=== PATIENT | male | born 1990 | race Caucasian/White ===

== ENCOUNTER 2020-09-28 14:11 | Observation (INO) | payer BC, OTHER ==
[2020-09-28] MEDS ORDERED: Sodium Chloride 0.9% 10 ML Syringe FLUSH PRN (14:48)
[2020-09-28] MEDS ORDERED: Sodium Chloride 0.9% 2.5 ML Syringe FLUSH PRN (14:48)
[2020-09-28] MEDS ORDERED: Sodium Chloride 0.9% 1,000 ML IV ONE ×2 (14:49→16:56)
[2020-09-28] MEDS ORDERED: Ondansetron 4 MG/2 ML SDV IVPUSH ONE (14:49)
--- NOTE | 2020-09-28 15:40 | CT ---
Indication: Fell today Technique: Noncontrast head CT Comparison: No comparison Findings: Axial noncontrast images through the brain parenchyma demonstrates no acute intracranial hemorrhage or mass. No midline shift. No abnormal extra-axial air fluid collections are seen. Paranasal sinuses, mastoid air cells, skull and scalp appear unremarkable. Impression: 1. No acute intracranial hemorrhage or mass Please note that all CT scans at this facility use dose modulation, iterative reconstruction, and/or weight-based dosing when appropriate to reduce radiation dose to as low as reasonably achievable. Dictated by Jodi Ta MD @ 09/28/2020 3:39:[address] Jodi Ta @ Sep 28 2020 3:39PM
[2020-09-28 15:54] LABS: BLOOD UREA NITROGEN,BUN 13 mg/dL (7.0-18.0); CHLORIDE,CL 100 mmol/L (98-107); GLUCOSE RANDOM 129 mg/dL (74-106); POTASSIUM,K 3.8 mmol/L (3.5-5.1); SODIUM,NA 132 mmol/L (136-148)
--- NOTE | 2020-09-28 15:57 | PCM.EKG ---
#1 Interpretation EKG Date: 09/28/20 Time: 15:51 Rhythm: A-Fib Rate (Beats/Min): 135 ST-T: Normal
[2020-09-28] MEDS ORDERED: LORazepam 2 MG/ML SDV IVPUSH ONE (16:04)
[2020-09-28] MEDS ORDERED: chlordiazePOXIDE 25 MG Cap PO ONE (16:07)
[2020-09-28] MEDS ORDERED: MVI, Adult with Vitamin K 10 ML, Thiamine 100 MG, Folic Acid 1 MG in Sodium Chloride 0.... IV ONE ×4 (16:10)
--- NOTE | 2020-09-28 16:11 | EDM.PDOC ---
ED HPI GENERAL MEDICAL PROBLEM - General Chief Complaint: General Stated Complaint: SEIZURES SYSTOMS Time Seen by Provider: 09/28/20 14:22 Source of Information: Reports: Patient, Family History Limitations: Reports: No Limitations - History of Present Illness INITIAL COMMENTS - FREE TEXT/NARRATIVE: HISTORY AND PHYSICAL: History of present illness: The patient is a 29-year-old male who presents to the emergency room after possible syncopal episode. His reports at 1345 today he walked out of his office uncoordinated. She states that he was kind of "out of it" for about 45 minutes. The patient states that he drank 2 bottles of wine on Tuesday and then on Tuesday he drank 6 beers and some gin. He states on Tuesday he ate a hamburger and some fries no other food consumption. He states that he is dizzy whether he is standing or lying down. He denies vomiting but is nauseated. He feels that he does not normally drink like this and that he just drank too much and is dehydrated. His reports that when she went into his office she noted some blood on the floor and blood coming from his mouth. The patient's also has complaints of lower back pain that started approximately 1 week ago. He states that he does a lot of bending and lifting for work. The patient's heart rate in the emergency department is 150 his blood pressure is 92/70. Orthostatics done at the bedside supine heart rate 150 blood pressure 124/62 standing heart rate 180 blood pressure 138/87. The patient is anxious and reports this is due to anxiety over possible syncopal episode or seizure activity. Patient denies any fever, chills, headache, change in vision. Denies any chest pain, shortness of breath or cough. Denies any abdominal pain, vomiting, diarrhea, constipation or dysuria. Has not noted any blood in urine or stool. Review of systems: As per history of present illness and below otherwise all systems reviewed and negative. Past medical history: As per history of present illness and as reviewed below otherwise noncontributory. Surgical history: As per history of present illness and as reviewed below otherwise noncontributory. Social history: See social history for further information Family history: As per history of present illness and as reviewed below otherwise noncontributory. Physical exam: General: Well developed and well nourished. Alert and orientated x 3. Nursing notes were reviewed. HEENT: Atraumatic, normocephalic, pupils equal and reactive bilaterally, negative for conjunctival pallor or scleral icterus, mucous membranes moist, TMs normal bilaterally, throat clear, neck supple, nontender, trachea midline. No drooling or trismus noted. No meningeal signs. No hot potato voice noted. Lungs: Clear to auscultation bilaterally. No wheezes, rales, or rhonchi. Chest nontender. Normal work of breathing, no accessory muscles used. Heart: Tachycardic. gallops, or rubs. No JVD. No peripheral edema Abdomen: Soft, nondistended, nontender. Normoactive bowel sounds. Negative for masses or costovertebral tenderness. Skin: Intact, warm, moist. No lesions or rashes noted. Hematologic: No petechiae or purpra. Mucosa appropriate color and normal nail bed color and refill. Extremities: Atraumatic, moves all extremities per self without difficulty or deficits, negative for cords or calf pain. Neurovascular unremarkable. Neuro: Awake, alert, oriented. Cranial nerves II through XII unremarkable. Cerebellum unremarkable. Motor and sensory unremarkable throughout. Exam nonfocal. Psychiatric: Anxious and jittery. Normal thought process. Answering questions appropriately. Notes: *This patient was seen and evaluated during the 2019 SARS-CoV-2 novel coronavirus pandemic period. Community viral transmission is ongoing at time of this encounter and the emergency department is operating under pandemic response procedures. After examination and discussion the patient is agreeable to labs, EKG, head CT. I did orthostatics on the patient at the bedside due to a blood initial blood pressure of 92/70. Supine the patient heart rate was 150 blood pressure 124/62, standing the heart rate was 180 blood pressure 138/87. The patient did get symptomatic with dizziness upon standing. I will work the patient up for possible syncopal episode including an EKG due to his tachycardia and head CT since the patient is unsure if he hit his head during a syncopal episode. Dr. Aceves consulted in case. The patient's CBC is unremarkable and his CMP is unremarkable. The patient's EKG is atrial fibrillation. Upon assessing patient noted the patient was very shaky and had tongue tremor. The patient states that he does drink daily and thought maybe he had just over did it the past few days. His last drink was at [address] Aceves advised treating the patient with 4 mg of Ativan and 50 mg of Librium. We will see if the patient's heart rate decreases. I have ordered a banana bag to go at [address]: Impression: 1. No acute intracranial hemorrhage or mass. I spoke with the patient regarding his alcohol intake. He states that the last 5 years he had increased his drinking to where it has become a problem. His peak of drinking was approximately 4 years ago in the last 4 years he is trying to decrease his intake. He gets off work around 6:00 in the evening and will drink until 2 AM in the morning. He then gets up at 7 for work and repeats the day. His reports that he does had a really bad week and reverted back to his intake of 4 years ago. The patient's heart rate still remains in the 150s Dr. Aceves has ordered diltiazem 20 mg IV push. The patient's blood pressure remained stable at 141/84. The patient has converted to sinus rhythm after second dose of diltiazem 20 mg IV push. I spoke with Dr. Elias regarding admission. After checking the patient's troponin if it is within normal limits we will admit the patient here. Patient's COVID-19 swab was negative. Patient's troponin was within normal limits. Dr. Elias notified of patient's rate of 10 8-1 12 still in atrial fibrillation. We will bring the patient in for observation on telemetry. Patient and his are aware of the observation and are agreeable to the plan. CXR: Cardiovascular and mediastinum: Heart size and vasculature are normal in caliber and appearance. Mediastinum is within normal limits. Lungs and pleural space: A small right basilar opacity could be related to focal vascular crowding. Correlate clinically to exclude a small infectious infiltrate. Otherwise no lobar consolidation or pleural effusions. No pneumothorax seen. Bones and soft tissues: No significant findings. Diagnostics: CBC CMP, EKG, magnesium, CT head Therapeutics: IV fluids, Zofran, Ativan 4 mg, Librium 50 mg oral, IV banana bag, diltiazem 20 mg x 2, diltiazem CD 120 mg Impression: Atrial fibrillation, alcohol withdrawal Definitive disposition and diagnosis as appropriate pending reevaluation and review of above. Lower Back Pain Score (Numeric/FACES): 4 - Related Data Allergies Allergy/AdvReac Type Severity Reaction Status Date / Time No Known Allergies Allergy Verified 09/28/20 14:33 Home Meds: Home Meds . [No Known Home Meds] 09/28/20 [History] Past Medical History Musculoskeletal History: Reports: Back Pain, Chronic Psychiatric History: Reports: Addiction - Past Surgical History HEENT Surgical History: Reports: Oral Surgery Social & Family History - Family History Family Medical History: No Pertinent Family History - Recreational Drug Use Recreational Drug Use: No ED ROS GENERAL - Review of Systems Review Of Systems: Comprehensive ROS is negative, except as noted in HPI. ED EXAM, GENERAL - Physical Exam Exam: See Below (See dictation) Course - Vital Signs Last Recorded V/S: Last Vital Signs Temp 99.5 F 09/28/20 20:00 Pulse 92 09/28/20 20:00 Resp 17 09/28/20 20:00 BP 114/79 09/28/20 20:00 Pulse Ox 96 09/28/20 20:00 - Orders/Labs/Meds Orders: Active Orders 24 hr Category Date Time Status EKG Documentation Completion [RC] STAT Care 09/28/20 14:48 Active Sodium Chloride 0.9% [Saline Flush] Med 09/28/20 14:48 Active 10 ml FLUSH ASDIRECTED PRN Sodium Chloride 0.9% [Saline Flush] Med 09/28/20 14:48 Active 2.5 ml FLUSH ASDIRECTED PRN Saline Lock Insert [OM.PC] Stat Oth 09/28/20 14:48 Ordered Medication Orders Albuterol/Ipratropium (Albuterol/Ipratropium 3.0-0.5 Mg/3 Ml Neb Soln) 3 ml NEB Q4HRRT PRN PRN Reason: Shortness Of Breath/wheezing Diltiazem HCl (Diltiazem 25 Mg/5 Ml Sdv) 20 mg IVPUSH Q4H PRN PRN Reason: Tachycardia Last Admin: 09/28/20 19:46 Dose: 20 mg Documented by: KARMEN Lactated Ringer's (Ringers, Lactated) 1,000 mls @ 125 mls/hr IV ASDIRECTED LAVERN Last Admin: 09/28/20 19:46 Dose: 125 mls/hr Documented by: KARMEN Lorazepam (Lorazepam 2 Mg/Ml Sdv) 2 mg IV Q2H PRN PRN Reason: Seizures Lorazepam (Lorazepam 2 Mg/Ml Sdv) 0 mg IVPUSH Q4H PRN; Protocol PRN Reason: Withdrawal Symptoms Ondansetron HCl (Ondansetron 4 Mg/2 Ml Sdv) 4 mg IVPUSH Q4H PRN PRN Reason: Nausea/Vomiting Sodium Chloride (Sodium Chloride 0.9% 10 Ml Syringe) 10 ml FLUSH ASDIRECTED PRN PRN Reason: Keep Vein Open Last Admin: 09/28/20 15:23 Dose: 10 ml Documented by: CHAUNCEY Sodium Chloride (Sodium Chloride 0.9% 2.5 Ml Syringe) 2.5 ml FLUSH ASDIRECTED PRN PRN Reason: Keep Vein Open Last Admin: 09/28/20 15:22 Dose: 2.5 ml Documented by: CHAUNCEY Labs: Laboratory Tests 09/28/20 09/28/20 09/28/20 Range/Units 14:30 15:21 15:21 WBC 7.97 (4.0-11.0) K/uL RBC 4.95 (4.50-5.90) M/uL Hgb 16.5 (13.0-17.0) g/dL Hct 48.2 (38.0-50.0) % MCV 97.4 (80.0-98.0) fL MCH 33.3 H (27.0-32.0) pg MCHC 34.2 (31.0-37.0) g/dL RDW Std Deviation 44.7 (28.0-62.0) fl RDW Coeff of Antony 13 (11.0-15.0) % Plt Count 209 (150-400) K/uL MPV 10.40 (7.40-12.00) fL Neut % (Auto) 79.4 (48.0-80.0) % Lymph % (Auto) 14.3 L (16.0-40.0) % Gregg % (Auto) 5.5 (0.0-15.0) % Eos % (Auto) 0.5 (0.0-7.0) % Baso % (Auto) 0.3 (0.0-1.5) % Neut # (Auto) 6.3 H (1.4-5.7) K/uL Lymph # (Auto) 1.1 (0.6-2.4) K/uL Gregg # (Auto) 0.4 (0.0-0.8) K/uL Eos # (Auto) 0.0 (0.0-0.7) K/uL Baso # (Auto) 0.0 (0.0-0.1) K/uL Nucleated RBC % 0.0 /100WBC Nucleated RBCs # 0 K/uL Sodium 132 L (136-148) mmol/L Potassium 3.8 (3.5-5.1) mmol/L Chloride 100 (98-107) mmol/L Carbon Dioxide 26.0 (21.0-32.0) mmol/L BUN 13 (7.0-18.0) mg/dL Creatinine 1.0 (0.8-1.3) mg/dL Est Cr Clr Drug Dosing 127.87 mL/min Estimated GFR (MDRD) > 60.0 ml/min Glucose 129 H (74-106) mg/dL POC Glucose 146 H (70-99) mg/dL Calcium 8.8 (8.5-10.1) mg/dL Magnesium 2.1 (1.8-2.4) mg/dL Total Bilirubin 0.4 (0.2-1.0) mg/dL AST 33 (15-37) IU/L ALT 51 (14-63) IU/L Alkaline Phosphatase 54 (46-116) U/L Troponin I (0.000-0.056) ng/mL Total Protein 7.4 (6.4-8.2) g/dL Albumin 4.2 (3.4-5.0) g/dL Globulin 3.2 (2.6-4.0) g/dL Albumin/Globulin Ratio 1.3 (0.9-1.6) TSH 3rd Generation (0.36-3.74) uIU/mL Ethyl Alcohol mg/dL SARS-CoV-2 RNA (WHITLEY) (NEGATIVE) 09/28/20 09/28/20 09/28/20 Range/Units 15:21 15:21 15:21 WBC (4.0-11.0) K/uL RBC (4.50-5.90) M/uL Hgb (13.0-17.0) g/dL Hct (38.0-50.0) % MCV (80.0-98.0) fL MCH (27.0-32.0) pg MCHC (31.0-37.0) g/dL RDW Std Deviation (28.0-62.0) fl RDW Coeff of Antony (11.0-15.0) % Plt Count (150-400) K/uL MPV (7.40-12.00) fL Neut % (Auto) (48.0-80.0) % Lymph % (Auto) (16.0-40.0) % Gregg % (Auto) (0.0-15.0) % Eos % (Auto) (0.0-7.0) % Baso % (Auto) (0.0-1.5) % Neut # (Auto) (1.4-5.7) K/uL Lymph # (Auto) (0.6-2.4) K/uL Gregg # (Auto) (0.0-0.8) K/uL Eos # (Auto) (0.0-0.7) K/uL Baso # (Auto) (0.0-0.1) K/uL Nucleated RBC % /100WBC Nucleated RBCs # K/uL Sodium (136-148) mmol/L Potassium (3.5-5.1) mmol/L Chloride (98-107) mmol/L Carbon Dioxide (21.0-32.0) mmol/L BUN (7.0-18.0) mg/dL Creatinine (0.8-1.3) mg/dL Est Cr Clr Drug Dosing mL/min Estimated GFR (MDRD) ml/min Glucose (74-106) mg/dL POC Glucose (70-99) mg/dL Calcium (8.5-10.1) mg/dL Magnesium (1.8-2.4) mg/dL Total Bilirubin (0.2-1.0) mg/dL AST (15-37) IU/L ALT (14-63) IU/L Alkaline Phosphatase (46-116) U/L Troponin I < 0.050 (0.000-0.056) ng/mL Total Protein (6.4-8.2) g/dL Albumin (3.4-5.0) g/dL Globulin (2.6-4.0) g/dL Albumin/Globulin Ratio (0.9-1.6) TSH 3rd Generation 0.63 (0.36-3.74) uIU/mL Ethyl Alcohol <3 mg/dL SARS-CoV-2 RNA ([facility]LEY) (NEGATIVE) 09/28/20 Range/Units 16:33 WBC (4.0-11.0) K/uL RBC (4.50-5.90) M/uL Hgb (13.0-17.0) g/dL Hct (38.0-50.0) % MCV (80.0-98.0) fL MCH (27.0-32.0) pg MCHC (31.0-37.0) g/dL RDW Std Deviation (28.0-62.0) fl RDW Coeff of Antony (11.0-15.0) % Plt Count (150-400) K/uL MPV (7.40-12.00) fL Neut % (Auto) (48.0-80.0) % Lymph % (Auto) (16.0-40.0) % Gregg % (Auto) (0.0-15.0) % Eos % (Auto) (0.0-7.0) % Baso % (Auto) (0.0-1.5) % Neut # (Auto) (1.4-5.7) K/uL Lymph # (Auto) (0.6-2.4) K/uL Gregg # (Auto) (0.0-0.8) K/uL Eos # (Auto) (0.0-0.7) K/uL Baso # (Auto) (0.0-0.1) K/uL Nucleated RBC % /100WBC Nucleated RBCs # K/uL Sodium (136-148) mmol/L Potassium (3.5-5.1) mmol/L Chloride (98-107) mmol/L Carbon Dioxide (21.0-32.0) mmol/L BUN (7.0-18.0) mg/dL Creatinine (0.8-1.3) mg/dL Est Cr Clr Drug Dosing mL/min Estimated GFR (MDRD) ml/min Glucose (74-106) mg/dL POC Glucose (70-99) mg/dL Calcium (8.5-10.1) mg/dL Magnesium (1.8-2.4) mg/dL Total Bilirubin (0.2-1.0) mg/dL AST (15-37) IU/L ALT (14-63) IU/L Alkaline Phosphatase (46-116) U/L Troponin I (0.000-0.056) ng/mL Total Protein (6.4-8.2) g/dL Albumin (3.4-5.0) g/dL Globulin (2.6-4.0) g/dL Albumin/Globulin Ratio (0.9-1.6) TSH 3rd Generation (0.36-3.74) uIU/mL Ethyl Alcohol mg/dL SARS-CoV-2 RNA ([facility]LEY) NEGATIVE (NEGATIVE) Meds: Medications Generic Name Dose Route Start Last Admin Trade Name Freq PRN Reason Stop Dose Admin Albuterol/Ipratropium 3 ml 09/28/20 17:59 Albuterol/Ipratropium 3.0-0.5 Mg/3 Ml Neb Soln NEB Q4HRRT PRN Shortness Of Breath/wheezing Diltiazem HCl 20 mg 09/28/20 18:05 09/28/20 19:46 Diltiazem 25 Mg/5 Ml Sdv IVPUSH 20 mg Q4H PRN Administration Tachycardia Lactated Ringer's 1,000 mls @ 125 mls/hr 09/28/20 18:00 09/28/20 19:46 Ringers, Lactated IV 125 mls/hr ASDIRECTED LAVREN Administration Lorazepam 2 mg 09/28/20 17:59 Lorazepam 2 Mg/Ml Sdv IV Q2H PRN Seizures Lorazepam 0 mg 09/28/20 18:04 Lorazepam 2 Mg/Ml Sdv IVPUSH Q4H PRN Withdrawal Symptoms Protocol Ondansetron HCl 4 mg 09/28/20 17:59 Ondansetron 4 Mg/2 Ml Sdv IVPUSH Q4H PRN Nausea/Vomiting Sodium Chloride 10 ml 09/28/20 14:48 09/28/20 15:23 Sodium Chloride 0.9% 10 Ml Syringe FLUSH 10 ml ASDIRECTED PRN Administration Keep Vein Open Sodium Chloride 2.5 ml 09/28/20 14:48 09/28/20 15:22 Sodium Chloride 0.9% 2.5 Ml Syringe FLUSH 2.5 ml ASDIRECTED PRN Administration Keep Vein Open Discontinued Medications Generic Name Dose Route Start Last Admin Trade Name Martin PRN Reason Stop Dose Admin Chlordiazepoxide HCl 50 mg 09/28/20 16:07 09/28/20 16:28 Chlordiazepoxide 25 Mg Cap PO 09/28/20 16:08 50 mg ONETIME ONE Administration Diltiazem HCl 20 mg 09/28/20 16:36 09/28/20 16:41 Diltiazem 25 Mg/5 Ml Sdv IVPUSH 09/28/20 16:37 20 mg ONETIME ONE Administration Diltiazem HCl Confirm 09/28/20 16:39 09/28/20 17:12 Diltiazem 25 Mg/5 Ml Sdv Administered 09/28/20 16:40 Not Given Dose 25 mg .ROUTE .STK-MED ONE Diltiazem HCl 20 mg 09/28/20 16:50 09/28/20 16:51 Diltiazem 25 Mg/5 Ml Sdv IVPUSH 09/28/20 16:51 20 mg ONETIME ONE Administration Diltiazem HCl 120 mg 09/28/20 17:00 09/28/20 17:13 Diltiazem 120 Mg Cap.Cd PO 09/28/20 17:01 120 mg ONETIME ONE Administration Sodium Chloride 1,000 mls @ 999 mls/hr 09/28/20 14:49 09/28/20 15:24 Normal Saline IV 09/28/20 15:49 999 mls/hr .BOLUS ONE Administration Multivitamins/Minerals 10 ml/ 1,011.2 mls @ 500 mls/hr 09/28/20 16:10 09/28/20 16:48 Thiamine HCl 100 mg/ Folic IV 09/28/20 18:11 500 mls/hr Acid 1 mg/ Sodium Chloride ONETIME ONE Administration Sodium Chloride 1,000 mls @ 999 mls/hr 09/28/20 16:56 09/28/20 16:57 Normal Saline IV 09/28/20 17:56 999 mls/hr .Bolus ONE Administration Lorazepam 4 mg 09/28/20 16:04 09/28/20 16:28 Lorazepam 2 Mg/Ml Sdv IVPUSH 09/28/20 16:05 4 mg ONETIME ONE Administration Ondansetron HCl 4 mg 09/28/20 14:49 09/28/20 15:25 Ondansetron 4 Mg/2 Ml Sdv IVPUSH 09/28/20 14:50 4 mg ONETIME ONE Administration Departure - Departure Time of Disposition: 17:30 Disposition: Refer to Observation Condition: Good Clinical Impression: Atrial fibrillation Qualifiers: Atrial fibrillation type: unspecified Qualified Code(s): I48.91 - Unspecified atrial fibrillation Alcohol withdrawal Qualifiers: Complication of substance-induced condition: with unspecified complication Qualified Code(s): F10.239 - Alcohol dependence with withdrawal, unspecified - Discharge Information *PRESCRIPTION DRUG MONITORING PROGRAM REVIEWED*: Not Applicable *COPY OF PRESCRIPTION DRUG MONITORING REPORT IN PATIENT MAHESH: Not Applicable Sepsis Event Note (ED) - Evaluation Sepsis Screening Result: No Definite Risk - Focused Exam Vital Signs: Vital Signs Temp Pulse Pulse Resp BP BP Pulse Ox 09/28/20 17:13 116 H 131/80 09/28/20 17:00 94 16 117/52 L 99 09/28/20 16:45 128 H 16 122/76 98 09/28/20 16:30 152 H 17 141/84 H 100 09/28/20 16:00 151 H 17 124/87 100 09/28/20 15:30 143 H 17 120/70 99 09/28/20 14:26 96.9 F 148 H 165 H 92/70 96 - My Orders Last 24 Hours: My Active Orders 09/28/20 14:48 EKG Documentation Completion [RC] STAT Sodium Chloride 0.9% [Saline Flush] 10 ml FLUSH ASDIRECTED PRN Sodium Chloride 0.9% [Saline Flush] 2.5 ml FLUSH ASDIRECTED PRN Saline Lock Insert [OM.PC] Stat - Assessment/Plan Last 24 Hours: My Active Orders 09/28/20 14:48 EKG Documentation Completion [RC] STAT Sodium Chloride 0.9% [Saline Flush] 10 ml FLUSH ASDIRECTED PRN Sodium Chloride 0.9% [Saline Flush] 2.5 ml FLUSH ASDIRECTED PRN Saline Lock Insert [OM.PC] Stat
[2020-09-28] MEDS ORDERED: Diltiazem 25 MG/5 ML SDV IVPUSH ONE ×2 (16:36→16:50)
[2020-09-28] MEDS ORDERED: Diltiazem 25 MG/5 ML SDV ONE (16:39)
[2020-09-28] MEDS ORDERED: Diltiazem 120 MG Cap.CD PO ONE (17:00)
--- NOTE | 2020-09-28 17:02 | PCM.SN.2 ---
- Free Text/Narrative Note: I saw the patient with a midlevel. Patient came in today for possible syncope but also seems to be having some alcohol withdrawal. Patient heart rate in the 160s and was thought to be in atrial fibrillation. Patient was given 4 of Ativan Librium to help out with his withdrawals. Patient was then given 20 mg IV diltiazem x2 and converted to sinus rhythm. Patient will likely require admission to the hospital. Critical Care Procedure Note Authorized and Performed by: Dr. Aceves Total critical care time: 45mins Due to a high probability of clinically significant, life threatening deterioration, the patient required my highest level of preparedness to intervene emergently and I personally spent this critical care time directly and personally managing the patient. This critical care time included obtaining a history; examining the patient; pulse oximetry; ordering and review of studies; arranging urgent treatment with development of a management plan; evaluation of patient's response to treatment; frequent reassessment; and, discussions with other providers. This critical care time was performed to assess and manage the high probability of imminent, life-threatening deterioration that could result in multi-organ failure. It was exclusive of separately billable procedures and treating other patients and teaching time.
--- NOTE | 2020-09-28 17:06 | PCM.EKG ---
#2 Interpretation EKG Date: 09/28/20 Time: 16:59 Rhythm: A-Fib Rate (Beats/Min): 85 ST-T: Normal
--- NOTE | 2020-09-28 17:27 | CR ---
Indication: New onset AFib Technique: Chest 1 view Comparison: None Findings/Impression: Cardiovascular and mediastinum: Heart size and vasculature are normal in caliber and appearance. Mediastinum is within normal limits. Lungs and pleural space: A small right basilar opacity could be related to focal vascular crowding. Correlate clinically to exclude a small infectious infiltrate. Otherwise no lobar consolidation or pleural effusions. No pneumothorax seen. Bones and soft tissues: No significant findings. Dictated by Hussain Lemos MD @ 09/28/2020 5:24:[address] Hussain Lemos @ Sep 28 2020 5:24PM
[2020-09-28] MEDS ORDERED: LORazepam 2 MG/ML SDV IV PRN (17:59)
[2020-09-28] MEDS ORDERED: Ondansetron 4 MG/2 ML SDV IVPUSH PRN (17:59)
[2020-09-28] MEDS ORDERED: Albuterol/Ipratropium 3.0-0.5 MG/3 ML Neb Soln NEB PRN (17:59)
[2020-09-28] MEDS ORDERED: LORazepam 2 MG/ML SDV IVPUSH PRN (18:04)
--- NOTE | 2020-09-28 18:08 | PCM.HP.2 ---
H&P History of Present Illness - General Date of Service: 09/28/20 Admit Problem/Dx: Admission Diagnosis/Problem Admission Diagnosis/Problem Atrial fibrillation - History of Present Illness Initial Comments - Free Text/Narative: The patient is a 29-year-old male with no significant past medical history who comes in to the ER after possible syncopal episode. Reportedly per in the afternoon patient was a little off after he walked out of his office for about 45 minutes. Patient states that he drank couple bottles of wine on Tuesday and did not say he drank a pack of beer as well as some gin. Patient states that he is not exactly sure what happened and was not able to give me any meaningful history. Patient denied any active vomiting or nausea, denied any fever chills, chest pain. Patient states that he might have had too much to drink and was not really drinking a lot of water and is dehydrated. Reportedly had informed the ER provider that she noticed some blood coming out of his mouth and on the floor. No active bleeding noted in the ER. Patient's heart rate was found to be elevated in 150s and EKG confirmed that patient was in atrial fibrillation with rapid ventricular response. Patient's blood pressure was on lower side 90/70, patient received IV Cardizem 20 mg x 2, which improved his heart rate but patient continued to be in A. fib. First troponin was checked which was n egative. Patient was not hypoxic, PE was not suspected. A. fib was attributed to possible "holiday heart syndrome" patient was admitted for further management. By the time I saw the patient patient was pretty sleepy as well minute due to receiving high dose of IV Ativan in the ER so did not really give me contributory meaningful history. Patient denies any fever, chills, headache, change in vision. Denies any chest pain, shortness of breath or cough. Denies any abdominal pain, vomiting, diar cholo, constipation or dysuria. Has not noted any blood in urine or stool. Lower Back Pain Score (Numeric/FACES): 4 - Related Data Allergies/Adverse Reactions: Allergies Allergy/AdvReac Type Severity Reaction Status Date / Time No Known Allergies Allergy Verified 09/28/20 14:33 Home Medications: Home Meds . [No Known Home Meds] 09/28/20 [History] Past Medical History Musculoskeletal History: Reports: Back Pain, Chronic Psychiatric History: Reports: Addiction - Past Surgical History HEENT Surgical History: Reports: Oral Surgery Social & Family History - Family History Family Medical History: No Pertinent Family History - Recreational Drug Use Recreational Drug Use: No H&P Review of Systems - Review of Systems: Review Of Systems: See Below General: Reports: Malaise, Weakness, Fatigue. Denies: Fever, Chills Pulmonary: Denies: Shortness of Breath, Wheezing Cardiovascular: Reports: Palpitations. Denies: Chest Pain, Dyspnea on Exertion, Orthopnea Gastrointestinal: Denies: Abdominal Pain, Anorexia, Black Stool Genitourinary: Denies: Dysuria, Frequency, Burning Musculoskeletal: Denies: Neck Pain, Shoulder Pain, Arm Pain, Back Pain Skin: Denies: Cyanosis, Jaundice, Mottled Psychiatric: Denies: Confusion, Depression, Mood Lability Neurological: Denies: Confusion, Dizziness, Headache Hematologic/Lymphatic: Denies: Anemia, Easy Bleeding, Easy Bruising Exam - Exam Exam: See Below - Vital Signs Vital Signs: Last Vital Signs Temp 36.1 C 09/28/20 14:26 Pulse 116 H 09/28/20 17:13 Resp 16 09/28/20 17:00 BP 131/80 09/28/20 17:13 Pulse Ox 99 09/28/20 17:00 Weight: 97.522 kg - Exam General: Cooperative, Mild Distress, Sedated Neck: Supple Lungs: Clear to Auscultation, Normal Respiratory Effort Cardiovascular: Irregular Rhythm, Tachycardia GI/Abdominal Exam: Normal Bowel Sounds, Soft, Non-Tender - Patient Data Lab Results Last 24 hrs: Laboratory Results - last 24 hr 09/28/20 09/28/20 09/28/20 Range/Units 14:30 15:21 15:21 WBC 7.97 (4.0-11.0) K/uL RBC 4.95 (4.50-5.90) M/uL Hgb 16.5 (13.0-17.0) g/dL Hct 48.2 (38.0-50.0) % MCV 97.4 (80.0-98.0) fL MCH 33.3 H (27.0-32.0) pg MCHC 34.2 (31.0-37.0) g/dL RDW Std Deviation 44.7 (28.0-62.0) fl RDW Coeff of Antony 13 (11.0-15.0) % Plt Count 209 (150-400) K/uL MPV 10.40 (7.40-12.00) fL Neut % (Auto) 79.4 (48.0-80.0) % Lymph % (Auto) 14.3 L (16.0-40.0) % Crosby % (Auto) 5.5 (0.0-15.0) % Eos % (Auto) 0.5 (0.0-7.0) % Baso % (Auto) 0.3 (0.0-1.5) % Neut # (Auto) 6.3 H (1.4-5.7) K/uL Lymph # (Auto) 1.1 (0.6-2.4) K/uL Crosby # (Auto) 0.4 (0.0-0.8) K/uL Eos # (Auto) 0.0 (0.0-0.7) K/uL Baso # (Auto) 0.0 (0.0-0.1) K/uL Nucleated RBC % 0.0 /100WBC Nucleated RBCs # 0 K/uL Sodium 132 L (136-148) mmol/L Potassium 3.8 (3.5-5.1) mmol/L Chloride 100 (98-107) mmol/L Carbon Dioxide 26.0 (21.0-32.0) mmol/L BUN 13 (7.0-18.0) mg/dL Creatinine 1.0 (0.8-1.3) mg/dL Est Cr Clr Drug Dosing 127.87 mL/min Estimated GFR (MDRD) > 60.0 ml/min Glucose 129 H (74-106) mg/dL POC Glucose 146 H (70-99) mg/dL Calcium 8.8 (8.5-10.1) mg/dL Magnesium 2.1 (1.8-2.4) mg/dL Total Bilirubin 0.4 (0.2-1.0) mg/dL AST 33 (15-37) IU/L ALT 51 (14-63) IU/L Alkaline Phosphatase 54 (46-116) U/L Troponin I (0.000-0.056) ng/mL Total Protein 7.4 (6.4-8.2) g/dL Albumin 4.2 (3.4-5.0) g/dL Globulin 3.2 (2.6-4.0) g/dL Albumin/Globulin Ratio 1.3 (0.9-1.6) Ethyl Alcohol mg/dL SARS-CoV-2 RNA (WHITLEY) (NEGATIVE) 09/28/20 09/28/20 09/28/20 Range/Units 15:21 15:21 16:33 WBC (4.0-11.0) K/uL RBC (4.50-5.90) M/uL Hgb (13.0-17.0) g/dL Hct (38.0-50.0) % MCV (80.0-98.0) fL MCH (27.0-32.0) pg MCHC (31.0-37.0) g/dL RDW Std Deviation (28.0-62.0) fl RDW Coeff of Antony (11.0-15.0) % Plt Count (150-400) K/uL MPV (7.40-12.00) fL Neut % (Auto) (48.0-80.0) % Lymph % (Auto) (16.0-40.0) % Crosby % (Auto) (0.0-15.0) % Eos % (Auto) (0.0-7.0) % Baso % (Auto) (0.0-1.5) % Neut # (Auto) (1.4-5.7) K/uL Lymph # (Auto) (0.6-2.4) K/uL Crosby # (Auto) (0.0-0.8) K/uL Eos # (Auto) (0.0-0.7) K/uL Baso # (Auto) (0.0-0.1) K/uL Nucleated RBC % /100WBC Nucleated RBCs # K/uL Sodium (136-148) mmol/L Potassium (3.5-5.1) mmol/L Chloride (98-107) mmol/L Carbon Dioxide (21.0-32.0) mmol/L BUN (7.0-18.0) mg/dL Creatinine (0.8-1.3) mg/dL Est Cr Clr Drug Dosing mL/min Estimated GFR (MDRD) ml/min Glucose (74-106) mg/dL POC Glucose (70-99) mg/dL Calcium (8.5-10.1) mg/dL Magnesium (1.8-2.4) mg/dL Total Bilirubin (0.2-1.0) mg/dL AST (15-37) IU/L ALT (14-63) IU/L Alkaline Phosphatase (46-116) U/L Troponin I < 0.050 (0.000-0.056) ng/mL Total Protein (6.4-8.2) g/dL Albumin (3.4-5.0) g/dL Globulin (2.6-4.0) g/dL Albumin/Globulin Ratio (0.9-1.6) Ethyl Alcohol <3 mg/dL SARS-CoV-2 RNA ([facility]LEY) NEGATIVE (NEGATIVE) Result Diagrams: 09/28/20 15:21 09/28/20 15:21 Sepsis Event Note - Evaluation Sepsis Screening Result: No Definite Risk - Focused Exam Vital Signs: Vital Signs Temp Pulse Pulse Resp BP BP Pulse Ox 09/28/20 17:13 116 H 131/80 09/28/20 17:00 94 16 117/52 L 99 09/28/20 16:45 128 H 16 122/76 98 09/28/20 16:30 152 H 17 141/84 H 100 09/28/20 16:00 151 H 17 124/87 100 09/28/20 15:30 143 H 17 120/70 99 09/28/20 14:26 36.1 C 148 H 165 H 92/70 96 Problem List Initiated/Reviewed/Updated: Yes Orders Last 24hrs: Active Orders 24 hr Category Date Time Status Admission Status [Patient Status] [ADT] Stat ADT 09/28/20 17:29 Active Ambulate [RC] ASDIRECTED Care 09/28/20 17:59 Ordered Antiembolic Devices [RC] PER UNIT ROUTINE Care 09/28/20 18:00 Ordered EKG Documentation Completion [RC] STAT Care 09/28/20 14:48 Active Oxygen Therapy [RC] PRN Care 09/28/20 17:59 Ordered Pulse Oximetry [RC] PRN Care 09/28/20 18:00 Ordered RT Aerosol Therapy [RC] ASDIRECTED Care 09/28/20 18:03 Ordered VTE/DVT Education [RC] PER UNIT ROUTINE Care 09/28/20 17:59 Ordered Vital Signs [RC] Q4H Care 09/28/20 17:59 Ordered Regular Diet [DIET] Diet 09/28/20 Dinner Ordered BMP [BASIC METABOLIC PANEL,BMP] [CHEM] AM Lab 09/29/20 05:11 Ordered CBC WITH AUTO DIFF [HEME] AM Lab 09/29/20 05:11 Ordered MAGNESIUM [CHEM] AM Lab 09/29/20 05:11 Ordered PHOSPHORUS [CHEM] AM Lab 09/29/20 05:11 Ordered Albuterol/Ipratropium [DuoNeb 3.0-0.5 MG/3 ML] Med 09/28/20 17:59 Ordered 3 ml NEB Q4HRRT PRN Diltiazem Med 09/28/20 18:05 Ordered 20 mg IVPUSH Q4H PRN LORazepam [Ativan] Med 09/28/20 17:59 Ordered 2 mg IV Q2H PRN LORazepam [Ativan] Med 09/28/20 18:04 Ordered See Protocol IVPUSH Q4H PRN Lactated Ringers @ 125 MLS/HR(1000ml) Med 09/28/20 18:00 Ordered Lactated Ringers [Ringers, Lactated] 1,000 ml IV ASDIRECTED MVI, Adult with Vitamin K [Infuvite Adult] 10 ml Med 09/28/20 16:10 Active Thiamine [Vitamin B-1] 100 mg Folic Acid 1 mg Sodium Chloride 0.9% [Normal Saline] 1,000 ml IV ONETIME Ondansetron [Zofran] Med 09/28/20 17:59 Ordered 4 mg IVPUSH Q4H PRN Sodium Chloride 0.9% [Saline Flush] Med 09/28/20 14:48 Active 10 ml FLUSH ASDIRECTED PRN Sodium Chloride 0.9% [Saline Flush] Med 09/28/20 14:48 Active 2.5 ml FLUSH ASDIRECTED PRN Saline Lock Insert [OM.PC] Stat Oth 09/28/20 14:48 Ordered Sequential Compression Device [OM.PC] Per Unit Routine Oth 09/28/20 18:00 Ordered Resuscitation Status Routine Resus Stat 09/28/20 17:59 Ordered Medication Orders Albuterol/Ipratropium (Albuterol/Ipratropium 3.0-0.5 Mg/3 Ml Neb Soln) 3 ml NEB Q4HRRT PRN PRN Reason: Shortness Of Breath/wheezing Diltiazem HCl (Diltiazem 25 Mg/5 Ml Sdv) 20 mg IVPUSH Q4H PRN PRN Reason: Tachycardia Multivitamins/Minerals 10 ml/Thiamine HCl 100 mg/ Folic Acid 1 mg/ Sodium Chloride 1,011.2 mls @ 500 mls/hr IV ONETIME ONE Stop: 09/28/20 18:11 Last Admin: 09/28/20 16:48 Dose: 500 mls/hr Documented by: CHAUNCEY Lactated Ringer's (Ringers, Lactated) 1,000 mls @ 125 mls/hr IV ASDIRECTED LAVERN Lorazepam (Lorazepam 2 Mg/Ml Sdv) 2 mg IV Q2H PRN PRN Reason: Seizures Lorazepam (Lorazepam 2 Mg/Ml Sdv) 0 mg IVPUSH Q4H PRN; Protocol PRN Reason: Withdrawal Symptoms Ondansetron HCl (Ondansetron 4 Mg/2 Ml Sdv) 4 mg IVPUSH Q4H PRN PRN Reason: Nausea/Vomiting Sodium Chloride (Sodium Chloride 0.9% 10 Ml Syringe) 10 ml FLUSH ASDIRECTED PRN PRN Reason: Keep Vein Open Last Admin: 09/28/20 15:23 Dose: 10 ml Documented by: CHAUNCEY Sodium Chloride (Sodium Chloride 0.9% 2.5 Ml Syringe) 2.5 ml FLUSH ASDIRECTED PRN PRN Reason: Keep Vein Open Last Admin: 09/28/20 15:22 Dose: 2.5 ml Documented by: CHAUNCEY Assessment/Plan Comment:: 29-year-old male with history of alcohol abuse and recent binge drinking over the weekend comes in with atrial fibrillation with rapid ventricular response Received IV Cardizem in the ER with improvement in the heart rate Patient has been started on oral Cardizem 120 mg extended release Continue IV fluid for hydration CIWA protocol for alcohol withdrawal IV Ativan for CIWA protocol Seizure precautions in place Thiamine and folic acid supplements Monitor and replete electrolytes as needed
[2020-09-28] MEDS: Diltiazem 25 MG/5 ML SDV IVPUSH PRN (19:46)
[2020-09-28] MEDS: Lactated Ringers 1,000 ML IV SCH (19:46)
[2020-09-29] MEDS: Diltiazem 25 MG/5 ML SDV IVPUSH PRN (01:47)
[2020-09-29] MEDS: Lactated Ringers 1,000 ML IV SCH ×2 (04:30→14:50)
[2020-09-29 06:33] LABS: BLOOD UREA NITROGEN,BUN 10 mg/dL (7.0-18.0); CARBON DIOXIDE,CO2 27.2 mmol/L (21.0-32.0); CHLORIDE,CL 104 mmol/L (98-107); GLUCOSE RANDOM 91 mg/dL (74-106); SODIUM,NA 140 mmol/L (136-148)
[2020-09-29] MEDS ORDERED: Sodium Chloride 0.9% 2.5 ML Syringe FLUSH PRN (08:33)
[2020-09-29] MEDS: Aspirin 81 MG Tab.Chew PO SCH (10:01)
[2020-09-29] MEDS: Diltiazem 120 MG Cap.CD PO SCH (10:46)
--- NOTE | 2020-09-29 13:18 | PCM.PN ---
- General Info Date of Service: 09/29/20 Admission Dx/Problem (Free Text): Admission Diagnosis/Problem Admission Diagnosis/Problem Atrial fibrillation Subjective Update: Patient much more alert today no signs of withdrawal. Patient family at bedside during rounds. Denies any chest pain shortness of breath. We did discuss possible evidence of yesterday including syncope and or seizure. Patient reports that he did speak with his father and it sounds like his father had the same thing happen to him years ago when he was his age and ended up having atrial fibrillation which has persisted throughout his lifetime. Patient counseled heavily on sobriety family and patient agree with this. Functional Status: Reports: Pain Controlled, Tolerating Diet, Ambulating, Urinating - Review of Systems General: Reports: No Symptoms. Denies: Weakness, Fatigue, Malaise Pulmonary: Reports: No Symptoms. Denies: Shortness of Breath Cardiovascular: Reports: No Symptoms. Denies: Chest Pain Gastrointestinal: Reports: No Symptoms. Denies: Abdominal Pain, Nausea, Vomiting Genitourinary: Reports: No Symptoms Musculoskeletal: Reports: No Symptoms Skin: Reports: No Symptoms Neurological: Reports: No Symptoms Psychiatric: Reports: No Symptoms - Patient Data Vitals - Most Recent: Last Vital Signs Temp 97.7 F 09/29/20 12:25 Pulse 85 09/29/20 12:25 Resp 14 09/29/20 12:25 BP 129/66 09/29/20 12:25 Pulse Ox 96 09/29/20 12:25 Weight - Most Recent: 93.894 kg I&O - Last 24 Hours: Intake & Output 09/28/20 09/29/20 09/29/20 22:59 06:59 14:59 Intake Total 800 Output Total 750 Balance 50 Lab Results Last 24 Hours: Laboratory Results - last 24 hr 09/28/20 09/28/20 09/28/20 Range/Units 14:30 15:21 15:21 WBC 7.97 (4.0-11.0) K/uL RBC 4.95 (4.50-5.90) M/uL Hgb 16.5 (13.0-17.0) g/dL Hct 48.2 (38.0-50.0) % MCV 97.4 (80.0-98.0) fL MCH 33.3 H (27.0-32.0) pg MCHC 34.2 (31.0-37.0) g/dL RDW Std Deviation 44.7 (28.0-62.0) fl RDW Coeff of Antony 13 (11.0-15.0) % Plt Count 209 (150-400) K/uL MPV 10.40 (7.40-12.00) fL Neut % (Auto) 79.4 (48.0-80.0) % Lymph % (Auto) 14.3 L (16.0-40.0) % Jerome % (Auto) 5.5 (0.0-15.0) % Eos % (Auto) 0.5 (0.0-7.0) % Baso % (Auto) 0.3 (0.0-1.5) % Neut # (Auto) 6.3 H (1.4-5.7) K/uL Lymph # (Auto) 1.1 (0.6-2.4) K/uL Jerome # (Auto) 0.4 (0.0-0.8) K/uL Eos # (Auto) 0.0 (0.0-0.7) K/uL Baso # (Auto) 0.0 (0.0-0.1) K/uL Nucleated RBC % 0.0 /100WBC Nucleated RBCs # 0 K/uL Sodium 132 L (136-148) mmol/L Potassium 3.8 (3.5-5.1) mmol/L Chloride 100 (98-107) mmol/L Carbon Dioxide 26.0 (21.0-32.0) mmol/L BUN 13 (7.0-18.0) mg/dL Creatinine 1.0 (0.8-1.3) mg/dL Est Cr Clr Drug Dosing 127.87 mL/min Estimated GFR (MDRD) > 60.0 ml/min Glucose 129 H (74-106) mg/dL POC Glucose 146 H (70-99) mg/dL Calcium 8.8 (8.5-10.1) mg/dL Phosphorus (2.6-4.7) mg/dL Magnesium 2.1 (1.8-2.4) mg/dL Total Bilirubin 0.4 (0.2-1.0) mg/dL AST 33 (15-37) IU/L ALT 51 (14-63) IU/L Alkaline Phosphatase 54 (46-116) U/L Troponin I (0.000-0.056) ng/mL Total Protein 7.4 (6.4-8.2) g/dL Albumin 4.2 (3.4-5.0) g/dL Globulin 3.2 (2.6-4.0) g/dL Albumin/Globulin Ratio 1.3 (0.9-1.6) TSH 3rd Generation (0.36-3.74) uIU/mL Ethyl Alcohol mg/dL SARS-CoV-2 RNA ([facility]) (NEGATIVE) 09/28/20 09/28/20 09/28/20 Range/Units 15:21 15:21 15:21 WBC (4.0-11.0) K/uL RBC (4.50-5.90) M/uL Hgb (13.0-17.0) g/dL Hct (38.0-50.0) % MCV (80.0-98.0) fL MCH (27.0-32.0) pg MCHC (31.0-37.0) g/dL RDW Std Deviation (28.0-62.0) fl RDW Coeff of Antony (11.0-15.0) % Plt Count (150-400) K/uL MPV (7.40-12.00) fL Neut % (Auto) (48.0-80.0) % Lymph % (Auto) (16.0-40.0) % Jerome % (Auto) (0.0-15.0) % Eos % (Auto) (0.0-7.0) % Baso % (Auto) (0.0-1.5) % Neut # (Auto) (1.4-5.7) K/uL Lymph # (Auto) (0.6-2.4) K/uL Jerome # (Auto) (0.0-0.8) K/uL Eos # (Auto) (0.0-0.7) K/uL Baso # (Auto) (0.0-0.1) K/uL Nucleated RBC % /100WBC Nucleated RBCs # K/uL Sodium (136-148) mmol/L Potassium (3.5-5.1) mmol/L Chloride (98-107) mmol/L Carbon Dioxide (21.0-32.0) mmol/L BUN (7.0-18.0) mg/dL Creatinine (0.8-1.3) mg/dL Est Cr Clr Drug Dosing mL/min Estimated GFR (MDRD) ml/min Glucose (74-106) mg/dL POC Glucose (70-99) mg/dL Calcium (8.5-10.1) mg/dL Phosphorus (2.6-4.7) mg/dL Magnesium (1.8-2.4) mg/dL Total Bilirubin (0.2-1.0) mg/dL AST (15-37) IU/L ALT (14-63) IU/L Alkaline Phosphatase (46-116) U/L Troponin I < 0.050 (0.000-0.056) ng/mL Total Protein (6.4-8.2) g/dL Albumin (3.4-5.0) g/dL Globulin (2.6-4.0) g/dL Albumin/Globulin Ratio (0.9-1.6) TSH 3rd Generation 0.63 (0.36-3.74) uIU/mL Ethyl Alcohol <3 mg/dL SARS-CoV-2 RNA ([facility]) (NEGATIVE) 09/28/20 09/29/20 09/29/20 Range/Units 16:33 05:50 05:50 WBC 8.40 (4.0-11.0) K/uL RBC 4.90 (4.50-5.90) M/uL Hgb 16.1 (13.0-17.0) g/dL Hct 47.9 (38.0-50.0) % MCV 97.8 (80.0-98.0) fL MCH 32.9 H (27.0-32.0) pg MCHC 33.6 (31.0-37.0) g/dL RDW Std Deviation 45.3 (28.0-62.0) fl RDW Coeff of Antony 13 (11.0-15.0) % Plt Count 220 (150-400) K/uL MPV 10.50 (7.40-12.00) fL Neut % (Auto) 68.4 (48.0-80.0) % Lymph % (Auto) 22.3 (16.0-40.0) % Jerome % (Auto) 8.0 (0.0-15.0) % Eos % (Auto) 1.2 (0.0-7.0) % Baso % (Auto) 0.1 (0.0-1.5) % Neut # (Auto) 5.8 H (1.4-5.7) K/uL Lymph # (Auto) 1.9 (0.6-2.4) K/uL Jerome # (Auto) 0.7 (0.0-0.8) K/uL Eos # (Auto) 0.1 (0.0-0.7) K/uL Baso # (Auto) 0.0 (0.0-0.1) K/uL Nucleated RBC % 0.0 /100WBC Nucleated RBCs # 0 K/uL Sodium 140 (136-148) mmol/L Potassium 4.0 (3.5-5.1) mmol/L Chloride 104 (98-107) mmol/L Carbon Dioxide 27.2 (21.0-32.0) mmol/L BUN 10 (7.0-18.0) mg/dL Creatinine 0.9 (0.8-1.3) mg/dL Est Cr Clr Drug Dosing 142.07 mL/min Estimated GFR (MDRD) > 60.0 ml/min Glucose 91 (74-106) mg/dL POC Glucose (70-99) mg/dL Calcium 7.9 L (8.5-10.1) mg/dL Phosphorus 3.1 (2.6-4.7) mg/dL Magnesium 2.0 (1.8-2.4) mg/dL Total Bilirubin (0.2-1.0) mg/dL AST (15-37) IU/L ALT (14-63) IU/L Alkaline Phosphatase (46-116) U/L Troponin I (0.000-0.056) ng/mL Total Protein (6.4-8.2) g/dL Albumin (3.4-5.0) g/dL Globulin (2.6-4.0) g/dL Albumin/Globulin Ratio (0.9-1.6) TSH 3rd Generation (0.36-3.74) uIU/mL Ethyl Alcohol mg/dL SARS-CoV-2 RNA ([facility]) NEGATIVE (NEGATIVE) Med Orders - Current: Current Medications Albuterol/Ipratropium (Albuterol/Ipratropium 3.0-0.5 Mg/3 Ml Neb Soln) 3 ml NEB Q4HRRT PRN PRN Reason: Shortness Of Breath/wheezing Aspirin (Aspirin 81 Mg Tab.Chew) 81 mg PO DAILY [facility] Last Admin: 09/29/20 10:01 Dose: 81 mg Documented by: Diltiazem HCl (Diltiazem 25 Mg/5 Ml Sdv) 20 mg IVPUSH Q4H PRN PRN Reason: Tachycardia Last Admin: 09/29/20 01:47 Dose: 20 mg Documented by: Diltiazem HCl (Diltiazem 120 Mg Cap.Cd) 120 mg PO DAILY [facility] Last Admin: 09/29/20 10:46 Dose: 120 mg Documented by: Folic Acid (Folic Acid 1 Mg Tab) 1 mg PO BEDTIME [facility] Lactated Ringer's (Ringers, Lactated) 1,000 mls @ 125 mls/hr IV ASDIRECTED [facility] Last Admin: 09/29/20 04:30 Dose: 125 mls/hr Documented by: Lorazepam (Lorazepam 2 Mg/Ml Sdv) 2 mg IV Q2H PRN PRN Reason: Seizures Lorazepam (Lorazepam 2 Mg/Ml Sdv) 0 mg IVPUSH Q4H PRN; Protocol PRN Reason: Withdrawal Symptoms Ondansetron HCl (Ondansetron 4 Mg/2 Ml Sdv) 4 mg IVPUSH Q4H PRN PRN Reason: Nausea/Vomiting Sodium Chloride (Sodium Chloride 0.9% 2.5 Ml Syringe) 2.5 ml FLUSH ASDIRECTED PRN PRN Reason: Keep Vein Open Thiamine HCl (Thiamine 100 Mg Tab) 100 mg PO BEDTIME [facility] Discontinued Medications Chlordiazepoxide HCl (Chlordiazepoxide 25 Mg Cap) 50 mg PO ONETIME ONE Stop: 09/28/20 16:08 Last Admin: 09/28/20 16:28 Dose: 50 mg Documented by: Diltiazem HCl (Diltiazem 25 Mg/5 Ml Sdv) 20 mg IVPUSH ONETIME ONE Stop: 09/28/20 16:37 Last Admin: 09/28/20 16:41 Dose: 20 mg Documented by: Diltiazem HCl (Diltiazem 25 Mg/5 Ml Sdv) Confirm Administered Dose 25 mg .ROUTE .STK-MED ONE Stop: 09/28/20 16:40 Last Admin: 09/28/20 17:12 Dose: Not Given Documented by: Diltiazem HCl (Diltiazem 25 Mg/5 Ml Sdv) 20 mg IVPUSH ONETIME ONE Stop: 09/28/20 16:51 Last Admin: 09/28/20 16:51 Dose: 20 mg Documented by: Diltiazem HCl (Diltiazem 120 Mg Cap.Cd) 120 mg PO ONETIME ONE Stop: 09/28/20 17:01 Last Admin: 09/28/20 17:13 Dose: 120 mg Documented by: Sodium Chloride (Normal Saline) 1,000 mls @ 999 mls/hr IV .BOLUS ONE Stop: 09/28/20 15:49 Last Admin: 09/28/20 15:24 Dose: 999 mls/hr Documented by: Multivitamins/Minerals 10 ml/Thiamine HCl 100 mg/ Folic Acid 1 mg/ Sodium Chloride 1,011.2 mls @ 500 mls/hr IV ONETIME ONE Stop: 09/28/20 18:11 Last Admin: 09/28/20 16:48 Dose: 500 mls/hr Documented by: Sodium Chloride (Normal Saline) 1,000 mls @ 999 mls/hr IV .Bolus ONE Stop: 09/28/20 17:56 Last Admin: 09/28/20 16:57 Dose: 999 mls/hr Documented by: Lorazepam (Lorazepam 2 Mg/Ml Sdv) 4 mg IVPUSH ONETIME ONE Stop: 09/28/20 16:05 Last Admin: 09/28/20 16:28 Dose: 4 mg Documented by: Ondansetron HCl (Ondansetron 4 Mg/2 Ml Sdv) 4 mg IVPUSH ONETIME ONE Stop: 09/28/20 14:50 Last Admin: 09/28/20 15:25 Dose: 4 mg Documented by: Sodium Chloride (Sodium Chloride 0.9% 10 Ml Syringe) 10 ml FLUSH ASDIRECTED PRN PRN Reason: Keep Vein Open Last Admin: 09/28/20 15:23 Dose: 10 ml Documented by: Sodium Chloride (Sodium Chloride 0.9% 2.5 Ml Syringe) 2.5 ml FLUSH ASDIRECTED PRN PRN Reason: Keep Vein Open Last Admin: 09/28/20 15:22 Dose: 2.5 ml Documented by: - Exam General: Alert, Oriented, Cooperative, No Acute Distress Lungs: Clear to Auscultation, Normal Respiratory Effort Cardiovascular: Regular Rate, Irregular Rhythm GI/Abdominal Exam: Normal Bowel Sounds, Soft, Non-Tender Extremities: Normal Inspection, Normal Range of Motion, Non-Tender, No Pedal Edema, Normal Capillary Refill Neurological: No New Focal Deficit Psy/Mental Status: Alert, Normal Affect, Normal Mood - Patient Data Lab Results Last 24 hrs: Laboratory Results - last 24 hr 09/28/20 09/28/20 09/28/20 Range/Units 14:30 15:21 15:21 WBC 7.97 (4.0-11.0) K/uL RBC 4.95 (4.50-5.90) M/uL Hgb 16.5 (13.0-17.0) g/dL Hct 48.2 (38.0-50.0) % MCV 97.4 (80.0-98.0) fL MCH 33.3 H (27.0-32.0) pg MCHC 34.2 (31.0-37.0) g/dL RDW Std Deviation 44.7 (28.0-62.0) fl RDW Coeff of Antony 13 (11.0-15.0) % Plt Count 209 (150-400) K/uL MPV 10.40 (7.40-12.00) fL Neut % (Auto) 79.4 (48.0-80.0) % Lymph % (Auto) 14.3 L (16.0-40.0) % Jerome % (Auto) 5.5 (0.0-15.0) % Eos % (Auto) 0.5 (0.0-7.0) % Baso % (Auto) 0.3 (0.0-1.5) % Neut # (Auto) 6.3 H (1.4-5.7) K/uL Lymph # (Auto) 1.1 (0.6-2.4) K/uL Jerome # (Auto) 0.4 (0.0-0.8) K/uL Eos # (Auto) 0.0 (0.0-0.7) K/uL Baso # (Auto) 0.0 (0.0-0.1) K/uL Nucleated RBC % 0.0 /100WBC Nucleated RBCs # 0 K/uL Sodium 132 L (136-148) mmol/L Potassium 3.8 (3.5-5.1) mmol/L Chloride 100 (98-107) mmol/L Carbon Dioxide 26.0 (21.0-32.0) mmol/L BUN 13 (7.0-18.0) mg/dL Creatinine 1.0 (0.8-1.3) mg/dL Est Cr Clr Drug Dosing 127.87 mL/min Estimated GFR (MDRD) > 60.0 ml/min Glucose 129 H (74-106) mg/dL POC Glucose 146 H (70-99) mg/dL Calcium 8.8 (8.5-10.1) mg/dL Phosphorus (2.6-4.7) mg/dL Magnesium 2.1 (1.8-2.4) mg/dL Total Bilirubin 0.4 (0.2-1.0) mg/dL AST 33 (15-37) IU/L ALT 51 (14-63) IU/L Alkaline Phosphatase 54 (46-116) U/L Troponin I (0.000-0.056) ng/mL Total Protein 7.4 (6.4-8.2) g/dL Albumin 4.2 (3.4-5.0) g/dL Globulin 3.2 (2.6-4.0) g/dL Albumin/Globulin Ratio 1.3 (0.9-1.6) TSH 3rd Generation (0.36-3.74) uIU/mL Ethyl Alcohol mg/dL SARS-CoV-2 RNA ([facility]) (NEGATIVE) 09/28/20 09/28/20 09/28/20 Range/Units 15:21 15:21 15:21 WBC (4.0-11.0) K/uL RBC (4.50-5.90) M/uL Hgb (13.0-17.0) g/dL Hct (38.0-50.0) % MCV (80.0-98.0) fL MCH (27.0-32.0) pg MCHC (31.0-37.0) g/dL RDW Std Deviation (28.0-62.0) fl RDW Coeff of Antony (11.0-15.0) % Plt Count (150-400) K/uL MPV (7.40-12.00) fL Neut % (Auto) (48.0-80.0) % Lymph % (Auto) (16.0-40.0) % Jerome % (Auto) (0.0-15.0) % Eos % (Auto) (0.0-7.0) % Baso % (Auto) (0.0-1.5) % Neut # (Auto) (1.4-5.7) K/uL Lymph # (Auto) (0.6-2.4) K/uL Jerome # (Auto) (0.0-0.8) K/uL Eos # (Auto) (0.0-0.7) K/uL Baso # (Auto) (0.0-0.1) K/uL Nucleated RBC % /100WBC Nucleated RBCs # K/uL Sodium (136-148) mmol/L Potassium (3.5-5.1) mmol/L Chloride (98-107) mmol/L Carbon Dioxide (21.0-32.0) mmol/L BUN (7.0-18.0) mg/dL Creatinine (0.8-1.3) mg/dL Est Cr Clr Drug Dosing mL/min Estimated GFR (MDRD) ml/min Glucose (74-106) mg/dL POC Glucose (70-99) mg/dL Calcium (8.5-10.1) mg/dL Phosphorus (2.6-4.7) mg/dL Magnesium (1.8-2.4) mg/dL Total Bilirubin (0.2-1.0) mg/dL AST (15-37) IU/L ALT (14-63) IU/L Alkaline Phosphatase (46-116) U/L Troponin I < 0.050 (0.000-0.056) ng/mL Total Protein (6.4-8.2) g/dL Albumin (3.4-5.0) g/dL Globulin (2.6-4.0) g/dL Albumin/Globulin Ratio (0.9-1.6) TSH 3rd Generation 0.63 (0.36-3.74) uIU/mL Ethyl Alcohol <3 mg/dL SARS-CoV-2 RNA ([facility]) (NEGATIVE) 09/28/20 09/29/2021 Range/Units 16:33 05:50 05:50 WBC 8.40 (4.0-11.0) K/uL RBC 4.90 (4.50-5.90) M/uL Hgb 16.1 (13.0-17.0) g/dL Hct 47.9 (38.0-50.0) % MCV 97.8 (80.0-98.0) fL MCH 32.9 H (27.0-32.0) pg MCHC 33.6 (31.0-37.0) g/dL RDW Std Deviation 45.3 (28.0-62.0) fl RDW Coeff of Antony 13 (11.0-15.0) % Plt Count 220 (150-400) K/uL MPV 10.50 (7.40-12.00) fL Neut % (Auto) 68.4 (48.0-80.0) % Lymph % (Auto) 22.3 (16.0-40.0) % Jerome % (Auto) 8.0 (0.0-15.0) % Eos % (Auto) 1.2 (0.0-7.0) % Baso % (Auto) 0.1 (0.0-1.5) % Neut # (Auto) 5.8 H (1.4-5.7) K/uL Lymph # (Auto) 1.9 (0.6-2.4) K/uL Jerome # (Auto) 0.7 (0.0-0.8) K/uL Eos # (Auto) 0.1 (0.0-0.7) K/uL Baso # (Auto) 0.0 (0.0-0.1) K/uL Nucleated RBC % 0.0 /100WBC Nucleated RBCs # 0 K/uL Sodium 140 (136-148) mmol/L Potassium 4.0 (3.5-5.1) mmol/L Chloride 104 (98-107) mmol/L Carbon Dioxide 27.2 (21.0-32.0) mmol/L BUN 10 (7.0-18.0) mg/dL Creatinine 0.9 (0.8-1.3) mg/dL Est Cr Clr Drug Dosing 142.07 mL/min Estimated GFR (MDRD) > 60.0 ml/min Glucose 91 (74-106) mg/dL POC Glucose (70-99) mg/dL Calcium 7.9 L (8.5-10.1) mg/dL Phosphorus 3.1 (2.6-4.7) mg/dL Magnesium 2.0 (1.8-2.4) mg/dL Total Bilirubin (0.2-1.0) mg/dL AST (15-37) IU/L ALT (14-63) IU/L Alkaline Phosphatase (46-116) U/L Troponin I (0.000-0.056) ng/mL Total Protein (6.4-8.2) g/dL Albumin (3.4-5.0) g/dL Globulin (2.6-4.0) g/dL Albumin/Globulin Ratio (0.9-1.6) TSH 3rd Generation (0.36-3.74) uIU/mL Ethyl Alcohol mg/dL SARS-CoV-2 RNA ([facility]) NEGATIVE (NEGATIVE) Result Diagrams: 09/29/20 05:50 09/29/20 05:50 Sepsis Event Note - Evaluation Sepsis Screening Result: No Definite Risk - Focused Exam Vital Signs: Vital Signs Temp Pulse Pulse Resp BP BP Pulse Ox 09/29/20 12:25 97.7 F 85 14 129/66 96 09/29/20 10:46 87 121/74 09/29/20 08:07 95.9 F L 87 14 121/74 98 09/29/20 04:00 99.1 F 80 17 122/69 97 - Problem List & Annotations (1) Alcohol withdrawal SNOMED Code(s): 816554435 Code(s): F10.239 - ALCOHOL DEPENDENCE WITH WITHDRAWAL, UNSPECIFIED Status: Acute Current Visit: Yes Qualifiers: Complication of substance-induced condition: with unspecified complication Qualified Code(s): F10.239 - Alcohol dependence with withdrawal, unspecified (2) Atrial fibrillation SNOMED Code(s): 56022928 Code(s): I48.91 - UNSPECIFIED ATRIAL FIBRILLATION Status: Acute Current Visit: Yes Qualifiers: Atrial fibrillation type: unspecified Qualified Code(s): I48.91 - Unspecif ied atrial fibrillation (3) Alcohol abuse SNOMED Code(s): 43502563 Code(s): F10.10 - ALCOHOL ABUSE, UNCOMPLICATED Status: Acute Current Visit: Yes - Problem List Review Problem List Initiated/Reviewed/Updated: Yes - My Orders Last 24 Hours: My Active Orders 09/29/20 08:33 Echo Comp wo Cont [US] Urgent Sodium Chloride 0.9% [Saline Flush] 2.5 ml FLUSH ASDIRECTED PRN Saline Lock Insert [OM.PC] Routine 09/29/20 09:00 Aspirin 81 mg PO DAILY 09/29/20 10:30 Diltiazem [Cardizem CD] 120 mg PO DAILY 09/29/20 21:00 Folic Acid 1 mg PO BEDTIME Thiamine [Vitamin B-1] 100 mg PO BEDTIME - Plan Plan:: 29-year-old male with history of alcohol abuse and recent binge drinking over the weekend comes in with atrial fibrillation with rapid ventricular response 1. A. fib RVR -Rate is controlled on diltiazem p.o. -Continue diltiazem 120 mg daily -Start aspirin 81 mg daily -[id number] score 0 -Echo ordered -Low risk for PE -Monitor on telemetry -Zio patch on discharge 2. Alcohol withdrawal/alcohol abuse -Given significant amount of benzodiazepines in the ER no withdrawal symptoms n oted now will monitor for another 24 hours and ensure patient is stable for discharge. - Continue IV fluid for hydration -CIWAA protocol for alcohol withdrawal with Ativan as needed - Seizure precautions in place - Thiamine and folic acid supplements - Monitor and replete electrolytes as needed VTE prophylaxis: SCDs CODE STATUS: Full code Dispo: 1 to 2 days
[2020-09-29] MEDS ORDERED: Folic Acid 1 MG Tab PO SCH (21:00)
[2020-09-29] MEDS ORDERED: Thiamine 100 MG Tab PO SCH (21:00)
[2020-09-30 06:49] LABS: BLOOD UREA NITROGEN,BUN 10 mg/dL (7.0-18.0); CARBON DIOXIDE,CO2 26.1 mmol/L (21.0-32.0); CHLORIDE,CL 106 mmol/L (98-107); GLUCOSE RANDOM 92 mg/dL (74-106); POTASSIUM,K 3.5 mmol/L (3.5-5.1); SODIUM,NA 141 mmol/L (136-148)
[2020-09-30] MEDS: Lactated Ringers 1,000 ML IV SCH ×2 (07:48)
--- NOTE | 2020-09-30 08:48 | PCM.DCSUM1 ---
Discharge Summary - Hospital Course Brief History: The patient is a 29-year-old male with no significant past medical history who comes in to the ER after possible syncopal episode. Reportedly per in the afternoon patient was a little off after he walked out of his office for about 45 minutes. Patient states that he drank couple bottles of wine on Tuesday and did not say he drank a pack of beer as well as some gin. Patient states that he is not exactly sure what happened and was not able to give me any meaningful history. Patient denied any active vomiting or nausea, denied any fever chills, chest pain. Patient states that he might have had too much to drink and was not really drinking a lot of water and is dehydrated. Reportedly had informed the ER provider that she noticed some blood coming out of his mouth and on the floor. No active bleeding noted in the ER. Patient's heart rate was found to be elevated in 150s and EKG confirmed that patient was in atrial fibrillation with rapid ventricular response. Patient's blood pressure was on lower side 90/70, patient received IV Cardizem 20 mg x 2, which improved his heart rate but patient continued to be in A. fib. First troponin was checked which was negative. Patient was not hypoxic, PE was not suspected. A. fib was attributed to possible "holiday heart syndrome" patient was admitted for further management. By the time I saw the patient patient was pretty sleepy as well minute due to receiving high dose of IV Ativan in the ER so did not really give me contributory meaningful history. Patient denies any fever, chills, headache, change in vision. Denies any chest pain, shortness of breath or cough. Denies any abdominal pain, vomiting, diarrhea, constipation or dysuria. Has not noted any blood in urine or stool. - Discharge Data Discharge Date: 09/30/20 Discharge Disposition: Home, Self-Care 01 Condition: Good - Referral to Home Health Primary Care Physician: Tim Baker MD - Discharge Diagnosis/Problem(s) (1) Alcohol withdrawal SNOMED Code(s): 509233966 ICD Code: F10.239 - ALCOHOL DEPENDENCE WITH WITHDRAWAL, UNSPECIFIED Status: Acute Current Visit: Yes Qualifiers: Complication of substance-induced condition: with unspecified complication Qualified Code(s): F10.239 - Alcohol dependence with withdrawal, unspecified (2) Atrial fibrillation SNOMED Code(s): 89647145 ICD Code: I48.91 - UNSPECIFIED ATRIAL FIBRILLATION Status: Acute Current Visit: Yes Qualifiers: Atrial fibrillation type: unspecified Qualified Code(s): I48.91 - Unspecified atrial fibrillation (3) Alcohol abuse SNOMED Code(s): 88452955 ICD Code: F10.10 - ALCOHOL ABUSE, UNCOMPLICATED Status: Acute Current Visit: Yes (4) Paroxysmal A-fib SNOMED Code(s): 730912950 ICD Code: I48.0 - PAROXYSMAL ATRIAL FIBRILLATION Status: Acute Current Visit: Yes - Patient Summary/Data Hospital Course: Admission diagnoses A. fib RVR Alcohol withdrawal Discharge diagnoses A. fib RVR resolved converted to normal sinus rhythm Alcohol withdrawal stable [facility] admitted secondary to atrial fibrillation with RVR. He was given IV diltiazem in the ER along with oral diltiazem, heart rate improved but patient remained in atrial fibrillation. Patient was admitted and monitored on telemetry. Electrolytes monitored and stable. Patient was treated for alcohol withdrawal which he denied any Ativan for. A. fib does run in his family as his father reports he had same episode around the same age and has remained in A. fib since. Patient converted yesterday around 1600 back to normal sinus rhythm and has not been doing well overnight. Heart rate remains 80s sinus rhythm blood pressure stable on diltiazem 120 mg p.o. daily. He will be discharged home today on diltiazem along with aspirin. Chads vas score was 0. Echo was obtained during his stay which reveals EF of 60 to 65%. Normal right ventricular systolic function, aortic valve is structurally normal and tricuspid, no evidence of MR trace tricuspid valve regurgitation unable to determine right ventricular systolic pressure patient was noted to be in A. fib during the study and no regional wall motion abnormalities noted. Patient has done well CIWA scores low and normal overnight. Patient significant other also updated at bedside. He will be discharged home with Zio patch for 14 days results to be sent to his PCP Dr. Baker. He also have outpatient follow with Dr. Higgins, cardiology when available. He was counseled on refraining from use of alcohol any longer as well as limiting caffeine use. He will be discharged home today with diltiazem and aspirin. He is to follow-up with PCP or return to ER if needed as concerns arise. - Patient Instructions Diet: Regular Diet as Tolerated Activity: No Strenuous Activities Showering/Bathing: May Shower Notify Provider of: Fever, Increased Pain, Swelling and Redness, Drainage, Nausea and/or Vomiting Other/Special Instructions: Refrain from Alcohol use. Attend AA meetings if needed, will provide list of meeting dates and times. ZIO patch for 14 days, Results will be sent to Dr Baker. - Discharge Plan *PRESCRIPTION DRUG MONITORING PROGRAM REVIEWED*: Not Applicable *COPY OF PRESCRIPTION DRUG MONITORING REPORT IN PATIENT MAHESH: Not Applicable Prescriptions/Med Rec: Aspirin 81 mg PO DAILY #30 tab.chew Diltiazem [Cardizem CD] 120 mg PO DAILY #30 cap.cd Home Medications: Home Meds Aspirin 81 mg PO DAILY #30 tab.chew 09/30/20 [Rx] Diltiazem [Cardizem CD] 120 mg PO DAILY #30 cap.cd 09/30/20 [Rx] Oxygen Therapy Mode: Room Air Patient Handouts: Diltiazem Extended-Release Oral Capsules or Tablets, Alcohol Use Disorder, Atrial Fibrillation, [id number] Referrals: Paulina Higgins MD [Physician] - Tim Baker MD [Primary Care Provider] - 10/06/20 10:00 am - Discharge Summary/Plan Comment DC Time >30 min.: No - Patient Data Vitals - Most Recent: Last Vital Signs Temp 96.8 F L 09/30/20 03:30 Pulse 79 09/30/20 03:30 Resp 15 09/30/20 03:30 BP 115/66 09/30/20 03:30 Pulse Ox 94 L 09/30/20 03:30 Weight - Most Recent: 93.894 kg I&O - Last 24 hours: Intake & Output 09/29/20 09/30/20 09/30/20 22:59 06:59 14:59 Intake Total 700 2528 Output Total 900 Balance 700 1628 Lab Results - Last 24 hrs: Laboratory Results - last 24 hr 09/30/20 Range/Units 05:58 Sodium 141 (136-148) mmol/L Potassium 3.5 (3.5-5.1) mmol/L Chloride 106 (98-107) mmol/L Carbon Dioxide 26.1 (21.0-32.0) mmol/L BUN 10 (7.0-18.0) mg/dL Creatinine 0.8 (0.8-1.3) mg/dL Est Cr Clr Drug Dosing 159.83 mL/min Estimated GFR (MDRD) > 60.0 ml/min Glucose 92 (74-106) mg/dL Calcium 8.0 L (8.5-10.1) mg/dL Magnesium 2.0 (1.8-2.4) mg/dL Med Orders - Current: Current Medications Albuterol/Ipratropium (Albuterol/Ipratropium 3.0-0.5 Mg/3 Ml Neb Soln) 3 ml NEB Q4HRRT PRN PRN Reason: Shortness Of Breath/wheezing Aspirin (Aspirin 81 Mg Tab.Chew) 81 mg PO DAILY [facility] Last Admin: 09/29/20 10:01 Dose: 81 mg Documented by: Diltiazem HCl (Diltiazem 25 Mg/5 Ml Sdv) 20 mg IVPUSH Q4H PRN PRN Reason: Tachycardia Last Admin: 09/29/20 01:47 Dose: 20 mg Documented by: Diltiazem HCl (Diltiazem 120 Mg Cap.Cd) 120 mg PO DAILY [facility] Last Admin: 09/29/20 10:46 Dose: 120 mg Documented by: Folic Acid (Folic Acid 1 Mg Tab) 1 mg PO BEDTIME [facility] Last Admin: 09/29/20 20:11 Dose: 1 mg Documented by: Lactated Ringer's (Ringers, Lactated) 1,000 mls @ 125 mls/hr IV ASDIRECTED [facility] Last Admin: 09/30/20 07:48 Dose: 125 mls/hr Documented by: Lorazepam (Lorazepam 2 Mg/Ml Sdv) 2 mg IV Q2H PRN PRN Reason: Seizures Lorazepam (Lorazepam 2 Mg/Ml Sdv) 0 mg IVPUSH Q4H PRN; Protocol PRN Reason: Withdrawal Symptoms Ondansetron HCl (Ondansetron 4 Mg/2 Ml Sdv) 4 mg IVPUSH Q4H PRN PRN Reason: Nausea/Vomiting Sodium Chloride (Sodium Chloride 0.9% 2.5 Ml Syringe) 2.5 ml FLUSH ASDIRECTED PRN PRN Reason: Keep Vein Open Thiamine HCl (Thiamine 100 Mg Tab) 100 mg PO BEDTIME [facility] Last Admin: 09/29/20 20:11 Dose: 100 mg Documented by: Discontinued Medications Chlordiazepoxide HCl (Chlordiazepoxide 25 Mg Cap) 50 mg PO ONETIME ONE Stop: 09/28/20 16:08 Last Admin: 09/28/20 16:28 Dose: 50 mg Documented by: Diltiazem HCl (Diltiazem 25 Mg/5 Ml Sdv) 20 mg IVPUSH ONETIME ONE Stop: 09/28/20 16:37 Last Admin: 09/28/20 16:41 Dose: 20 mg Documented by: Diltiazem HCl (Diltiazem 25 Mg/5 Ml Sdv) Confirm Administered Dose 25 mg .ROUTE .STK-MED ONE Stop: 09/28/20 16:40 Last Admin: 09/28/20 17:12 Dose: Not Given Documented by: Diltiazem HCl (Diltiazem 25 Mg/5 Ml Sdv) 20 mg IVPUSH ONETIME ONE Stop: 09/28/20 16:51 Last Admin: 09/28/20 16:51 Dose: 20 mg Documented by: Diltiazem HCl (Diltiazem 120 Mg Cap.Cd) 120 mg PO ONETIME ONE Stop: 09/28/20 17:01 Last Admin: 09/28/20 17:13 Dose: 120 mg Documented by: Sodium Chloride (Normal Saline) 1,000 mls @ 999 mls/hr IV .BOLUS ONE Stop: 09/28/20 15:49 Last Admin: 09/28/20 15:24 Dose: 999 mls/hr Documented by: Multivitamins/Minerals 10 ml/Thiamine HCl 100 mg/ Folic Acid 1 mg/ Sodium Chloride 1,011.2 mls @ 500 mls/hr IV ONETIME ONE Stop: 09/28/20 18:11 Last Admin: 09/28/20 16:48 Dose: 500 mls/hr Documented by: Sodium Chloride (Normal Saline) 1,000 mls @ 999 mls/hr IV .Bolus ONE Stop: 09/28/20 17:56 Last Admin: 09/28/20 16:57 Dose: 999 mls/hr Documented by: Lorazepam (Lorazepam 2 Mg/Ml Sdv) 4 mg IVPUSH ONETIME ONE Stop: 09/28/20 16:05 Last Admin: 09/28/20 16:28 Dose: 4 mg Documented by: Ondansetron HCl (Ondansetron 4 Mg/2 Ml Sdv) 4 mg IVPUSH ONETIME ONE Stop: 09/28/20 14:50 Last Admin: 09/28/20 15:25 Dose: 4 mg Documented by: Sodium Chloride (Sodium Chloride 0.9% 10 Ml Syringe) 10 ml FLUSH ASDIRECTED PRN PRN Reason: Keep Vein Open Last Admin: 09/28/20 15:23 Dose: 10 ml Documented by: Sodium Chloride (Sodium Chloride 0.9% 2.5 Ml Syringe) 2.5 ml FLUSH ASDIRECTED PRN PRN Reason: Keep Vein Open Last Admin: 09/28/20 15:22 Dose: 2.5 ml Documented by:
[2020-09-30] MEDS: Aspirin 81 MG Tab.Chew PO SCH (08:53)
[2020-09-30] MEDS: Diltiazem 120 MG Cap.CD PO SCH (08:53)
--- NOTE | 2020-09-30 13:01 | ECHO ---
EXAM DATE: 09/28/20 PATIENT'S AGE: 29 The ECHO report has been scanned into [employer] and can be seen in this patient's EMR (Electronic Medical Record) under the REPORTS section. The report has also been scanned into PACS. [facility]
== END 2020-09-30 12:45 | disposition home or self-care (01) ==
LOC: MW.ED 14:11 → MW.MS 17:29
PROVIDERS: ADMIT Student in an Organized Health Care Education/Training Program; ATTEND Student in an Organized Health Care Education/Training Program
DX: F10.239 Alcohol dependence with withdrawal, unspecified (principal); I48.0 Paroxysmal atrial fibrillation; E86.0 Dehydration; M54.5 Low back pain; Z79.82 Long term (current) use of aspirin; Z20.822 Contact with and (suspected) exposure to COVID-19
CPT/HCPCS: 36415; 70450; 71045; 80048; 80053; 80307; 82947; 83735; 84100; 84443; 84484; 85025; 87635; 93005; 93306; 96365; 96375; 96376; 99285; A9270; G0378; J2060; J2405; J3411; J3490; J7030; J7120; 93010; 99284; U0002

== ENCOUNTER 2021-01-10 11:33 | Emergency (ER) | payer BC ==
--- NOTE | 2021-01-10 14:04 | EDM.PDOC ---
ED HPI GENERAL MEDICAL PROBLEM - General Chief Complaint: General Stated Complaint: COUGH,SORE THROAT Time Seen by Provider: 01/10/21 13:14 Source of Information: Reports: Patient - History of Present Illness INITIAL COMMENTS - FREE TEXT/NARRATIVE: 30-year-old male presents with sore throats cough fatigue. Patient is immunized against Covid. No known Covid contacts. No shortness of breath. Moderate symptoms. No exacerbating or alleviating factors. No history of blood clot. No unilateral leg swelling. No recent travel, injury, cancer, surgery. No smoking or control no chest pain. 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 He states his heart rate is always high and this is not changed throat Pain Score (Numeric/FACES): 1 - Related Data Allergies Allergy/AdvReac Type Severity Reaction Status Date / Time No Known Allergies Allergy Verified 01/10/21 13:12 Home Meds: Home Meds Aspirin 81 mg PO DAILY #30 tab.chew 09/30/20 [Rx] Past Medical History Cardiovascular History: Reports: Arrhythmia Musculoskeletal History: Reports: Back Pain, Chronic Psychiatric History: Reports: Addiction - Infectious Disease History Infectious Disease History: Reports: None - Past Surgical History HEENT Surgical History: Reports: Oral Surgery Social & Family History - Family History Family Medical History: No Pertinent Family History - Tobacco Use Tobacco Use Status *Q: Former Tobacco User Used Tobacco, but Quit: Yes Month/Year Tobacco Last Used: 2015 - Caffeine Use Caffeine Use: Reports: None Caffeine Use Comment: every morning 1 quart. - Recreational Drug Use Recreational Drug Use: No ED ROS GENERAL - Review of Systems Review Of Systems: See Below Constitutional: Reports: Chills Respiratory: Reports: Cough. Denies: Shortness of Breath Cardiovascular: Denies: Chest Pain Endocrine: Reports: Fatigue GI/Abdominal: Denies: Abdominal Pain Musculoskeletal: Reports: Joint Pain Skin: Denies: Rash ED EXAM, GENERAL - Physical Exam Exam: See Below Free Text/Narrative:: CONSTITUTIONAL: well appearing in no acute distress SKIN: Warm, dry, and intact without rash HENT: Normocephalic, atraumatic,. There is no cervical lymphadenopathy. Oropharynx clear without exudate or evidence of peritonsillar abscess PULMONARY: clear to ausculation bilaterally. No rales, rhonchi, wheezing CARDIOVASCULAR: Tachycardia, no murmurs or rubs or gallops GASTROINTESTINAL: soft, nondistended, nontender NEUROLOGIC: normal speech,. Sensorimotor function grossly intact MUSCULOSKELETAL: no gross deformities, atraumatic PSYCHIATRIC: normal mood and affect Course - Vital Signs Text/Narrative:: Patient presents with symptoms as outlined above. Consistent with viral infection. Patient is vaccinated and Covid is negative. Patient did have some tachycardia and we spoke of alternative etiologies including but not limited to arrhythmia, PE, myocarditis or other conditions with significant morbidity and/or mortality.. The patient in the emergency department does not want this evaluated or worked up. He only wants Covid testing. Patient is alert and oriented certainly has capacity to make his own decisions and does not want any additional testing or treatment other than Covid testing at this time Last Recorded V/S: Last Vital Signs Temp 37.0 C 01/10/21 14:10 Pulse 100 01/10/21 14:10 Resp 16 01/10/21 14:10 BP 142/82 H 01/10/21 14:10 Pulse Ox 96 01/10/21 14:10 - Orders/Labs/Meds Labs: Laboratory Tests 01/10/21 Range/Units 13:28 SARS-CoV-2 RNA ([facility]) NEGATIVE (NEGATIVE) Departure - Departure Time of Disposition: 14:03 Disposition: Home, Self-Care 01 Condition: Good Clinical Impression: Viral illness - Discharge Information Instructions: Viral Illness, Adult Referrals: Tim Baker MD [Primary Care Provider] - Forms: ED Department Discharge Additional Instructions: Return for shortness of breath, change or worsening condition or lack of improvement. We will call you with your Covid test results. Please isolate until these test come back. This does not 100% sensitive and if the test does come back negative cannot definitively exclude Covid Sepsis Event Note (ED) - Evaluation Sepsis Screening Result: No Definite Risk - Focused Exam Vital Signs: Vital Signs Temp Pulse Resp BP Pulse Ox 01/10/21 14:10 37.0 C 100 16 142/82 H 96 01/10/21 13:28 36.6 C 115 H 16 149/91 H 98 01/10/21 13:14 36.2 C 107 H 19 147/88 H 97
== END 2021-01-10 14:11 | disposition home or self-care (01) ==
LOC: MW.ED 11:33
DX: B34.9 Viral infection, unspecified (principal); Z79.82 Long term (current) use of aspirin; Z87.891 Personal history of nicotine dependence; Z20.822 Contact with and (suspected) exposure to COVID-19
CPT/HCPCS: 99282; 99283; U0002

== ENCOUNTER 2023-09-14 13:46 | Emergency (ER) | payer BC, OTHER ==
[2023-09-14] MEDS ORDERED: Magnesium Sulfate/Water 2 GM in Premix Bag 1 BAG IV ONE (14:45)
[2023-09-14] MEDS: Sodium Chloride 0.9% 10 ML Syringe FLUSH PRN (14:45)
[2023-09-14] MEDS: Sodium Chloride 0.9% 2.5 ML Syringe FLUSH PRN (14:45)
[2023-09-14] MEDS: Sodium Chloride 0.9% 1,000 ML IV ONE ×2 (14:46→15:34)
[2023-09-14 15:02] LABS: BASOPHILS ABSOLUTE AUTO 0.05 K/uL (0.00-0.20); BASOPHILS PERCENT AUTO 0.6 % (0.0-1.0); EOSINOPHILS ABSOLUTE AUTO 0.04 K/uL (0.00-0.45); EOSINOPHILS PERCENT AUTO 0.5 % (0.0-6.0); HEMATOCRIT 47.9 % (42.0-52.0); IMMATURE GRAN ABSOLUTE AUTO 0.08 K/uL (0.00-0.05); IMMATURE GRAN PERCENT AUTO 0.9 % (0.0-0.4); LYMPHOCYTES ABSOLUTE AUTO 0.98 K/uL (1.00-4.80); LYMPHOCYTES PERCENT AUTO 11.3 % (24.0-44.0); MEAN CORPUSCULAR HEMOGLOBIN 32.8 pg (28.0-32.0); MEAN CORPUSCULAR HGB CONC 35.5 g/dL (32.0-36.0); MEAN CORPUSCULAR VOLUME 92.3 fL (83.0-99.0); MEAN PLATELET VOLUME 9.6 fL (9.4-12.4); MONOCYTES ABSOLUTE AUTO 0.47 K/uL (0.00-0.80); MONOCYTES PERCENT AUTO 5.4 % (0.0-8.0); NEUTROPHILS ABSOLUTE AUTO 7.08 K/uL (1.80-7.70); NEUTROPHILS PERCENT AUTO 81.3 % (41.0-71.0); PLATELET COUNT,PLT 281 K/uL (150-400); RED BLOOD CELL COUNT 5.19 M/uL (4.52-5.90)
[2023-09-14 15:29] LABS: A/G RATIO 1.2 (0.9-1.6); ALBUMIN 4.4 g/dL (3.4-5.0); BILIRUBIN TOTAL 0.4 mg/dL (0.2-1.0); CALCIUM 10.3 mg/dL (8.5-10.1); CARBON DIOXIDE,CO2 21.6 mmol/L (21.0-32.0); EST CRCL DRUG DOSING (CG) 124.44 mL/min; POTASSIUM,K 4.3 mmol/L (3.5-5.1)
[2023-09-14 15:43] LABS: LACTIC ACID 4.2 mmol/L (0.4-2.0)
[2023-09-14 15:51] LABS: TSH ULTRASENSITIVE 1.41 uIU/mL (0.36-3.74)
== END 2023-09-14 17:00 | disposition home or self-care (01) ==
LOC: MW.ED 13:46
DX: R56.9 Unspecified convulsions (principal); Z79.899 Other long term (current) drug therapy
CPT/HCPCS: 36415; 70450; 80053; 80307; 83605; 84443; 85025; 85379; 96361; 96374; 99285; J1953; J3490; J7030; J7060; 93005

== ENCOUNTER 2025-03-03 12:16 | Emergency (ER) | payer OTHER, BC ==
[2025-03-03] MEDS ORDERED: Sodium Chloride 0.9% 10 ML Syringe FLUSH PRN (13:13)
[2025-03-03] MEDS ORDERED: Sodium Chloride 0.9% 2.5 ML Syringe FLUSH PRN (13:13)
[2025-03-03 13:30] LABS: BASOPHILS ABSOLUTE AUTO 0.04 K/uL (0.00-0.20); BASOPHILS PERCENT AUTO 0.4 % (0.0-1.0); EOSINOPHILS ABSOLUTE AUTO 0.17 K/uL (0.00-0.45); EOSINOPHILS PERCENT AUTO 1.5 % (0.0-6.0); IMMATURE GRAN ABSOLUTE AUTO 0.05 K/uL (0.00-0.05); IMMATURE GRAN PERCENT AUTO 0.4 % (0.0-0.4); LYMPHOCYTES ABSOLUTE AUTO 2.09 K/uL (1.00-4.80); LYMPHOCYTES PERCENT AUTO 18.6 % (24.0-44.0); MEAN PLATELET VOLUME 9.8 fL (9.4-12.4); MONOCYTES ABSOLUTE AUTO 0.69 K/uL (0.00-0.80); MONOCYTES PERCENT AUTO 6.1 % (0.0-8.0); NEUTROPHILS ABSOLUTE AUTO 8.18 K/uL (1.80-7.70); NEUTROPHILS PERCENT AUTO 73.0 % (41.0-71.0); NRBC ABSOLUTE 0.00 K/uL (0.00-0.02); NRBC PERCENT 0.0 /100WBC (0.0-0.2); PLATELET COUNT,PLT 279 K/uL (150-400); RED BLOOD CELL COUNT 5.26 M/uL (4.52-5.90); WHITE BLOOD CELL COUNT,WBC 11.22 K/uL (3.9-11.3)
[2025-03-03] MEDS: Iopamidol 755 Mg/ML 100 ML Bottle IVPUSH ONE (13:35)
[2025-03-03 13:42] LABS: INR 0.95 (0.86-1.11); PTT,PARTIAL THROMBOPLSTIN TIME 28.9 SEC (23.9-30.7)
[2025-03-03 13:52] LABS: A/G RATIO 1.6 (0.9-1.6); ALANINE AMINOTRANSFERASE,ALT 67.0 IU/L (14-63); ASPARTATE AMNIOTRANSFERASE,AST 31.0 IU/L (15-37); BILIRUBIN TOTAL 0.5 mg/dL (0.2-1.0); BLOOD UREA NITROGEN,BUN 11.0 mg/dL (7.0-18.0); CARBON DIOXIDE,CO2 25.7 mmol/L (21.0-32.0); CHLORIDE,CL 107.0 mmol/L (98-107); CREATINE KINASE,CK 173.0 U/L (26-308); CREATININE 0.8 mg/dL (0.8-1.3); EST CRCL DRUG DOSING (CG) 152.7 mL/min; GLUCOSE RANDOM 99.0 mg/dL (74-106); POTASSIUM,K 4.6 mmol/L (3.5-5.1); PROTEIN TOTAL,TP 7.4 g/dL (6.4-8.2); SODIUM,NA 144.0 mmol/L (136-148)
[2025-03-03 13:55] LABS: ESTIMATED GFR 120.0 mL/min (>60)
[2025-03-03] MEDS: Lidocaine 1% with EPINEPHrine 1:100,000 10 ML MDV INJECT ONE (14:21)
[2025-03-03] MEDS: ceFAZolin 2 GM in Water For Injection, Sterile 20 ML IVPUSH ONE (17:06)
== END 2025-03-03 18:29 | disposition home or self-care (01) ==
LOC: MW.ED 12:16
DX: S01.81XA Laceration without foreign body of other part of head, initial encounter (principal); S50.319A Abrasion of unspecified elbow, initial encounter; S80.811A Abrasion, right lower leg, initial encounter; V29.99XA Rider (driver) (passenger) of other motorcycle injured in unspecified traffic accident, initial encounter
CPT/HCPCS: 12013; 36415; 70450; 70486; 71260; 72125; 73030; 74177; 80053; 82550; 83605; 83735; 85025; 85610; 85730; 96374; 99284; A4216; A9270; J0665; J0690; J2004; J7030; Q9967; 99283; J3490

== ENCOUNTER 2025-03-12 15:10 | Emergency (ER) | payer BC | END 2025-03-12 15:50 | disposition left against medical advice (07) | LOC: MW.ED 15:10 | DX: S01.111D Laceration without foreign body of right eyelid and periocular area, subsequent encounter (principal); X58.XXXD Exposure to other specified factors, subsequent encounter | CPT/HCPCS: 99281 ==